=== PATIENT | male | born 2000 | race Caucasian/White ===

== ENCOUNTER 2019-08-11 18:12 | Emergency (ER) | payer SELFPAY ==
[2019-08-11] MEDS ORDERED: Ketorolac Tromethamine 30 MG/ML VIAL ONE (18:31)
[2019-08-11] MEDS ORDERED: Fentanyl 100 MCG/2 ML VIAL ONE ×2 (18:31→19:57)
--- NOTE | 2019-08-11 19:02 | RAD ---
RIGHT SHOULDER TWO VIEWS: 08/11/19 HISTORY: Fall, right shoulder pain. FINDINGS/IMPRESSION: No acute fracture or dislocation is identified. POS: [facility]
--- NOTE | 2019-08-11 19:09 | RAD ---
RIGHT ELBOW TWO VIEWS: 08/11/19 HISTORY: Fall, right elbow pain. FINDINGS/IMPRESSION: there is a comminuted fracture involving the distal shaft of the right humerus. POS: [facility]
--- NOTE | 2019-08-11 19:11 | RAD ---
PORTABLE CHEST ONE VIEW: 08/11/19 at 7:03 p.m. HISTORY: Chest pain. FINDINGS: The cardiomediastinum is normal. The lungs are well expanded and clear. The bony thorax is normal. IMPRESSION: Normal exam. POS: [facility]
[2019-08-11 19:28] LABS: #Basophils 0.1 thou/uL (0.0-0.2); #Eosinphils 0.1 thou/uL (0.0-0.7); #Lymphocytes 1.6 thou/uL (1.20-3.40); #Monocytes 1.4 thou/uL (0.11-0.59); #Neutrophils 13.1 thou/uL (1.40-6.50); %Basophils 0.3 % (0.0-1.0); %Eosinophils 0.4 % (0.0-10.0); %Monocytes 8.5 % (0.0-4.0); %Neutrophils 80.8 % (31.0-61.0); Hemoglobin 16.6 g/dL (14.0-18.0); Mean Corpuscular HGB CONC 33.3 g/dL (32.0-36.0); Mean Corpuscular Hemoglobin 30.2 pg (25.0-35.0); Mean Corpuscular Volume 90.6 fL (78.0-98.0); Platelet Count 262 thou/uL (130-400); RBC Distribution Width 12.3 % (11.5-14.5); Red Blood Cell (RBC) Count 5.49 mill/uL (4.00-5.20); White Blood Cell (WBC) Count 16.2 thou/uL (4.8-10.8)
[2019-08-11 19:46] LABS: ALT (SGPT) 23 U/L (8-55); AST (SGOT) 25 U/L (5-34); Albumin 5.2 g/dL (3.5-5.0); Alkaline Phosphatase 59 U/L (50-130); Anion Gap 15 mmol/L (10-20); BUN (Urea Nitrogen) 10 mg/dL (8.9-20.6); Bilirubin, Total 0.5 mg/dL (0.2-1.2); Calc. Creatinine Clearance 0 mL/min (70-130); Calcium 9.9 mg/dL (7.8-10.44); Carbon Dioxide 22 mmol/L (22-29); Chloride 106 mmol/L (98-107); Estimated GFR-MDRD Greater than 90; Globulin 3.1 g/dL (2.4-3.5); Glucose 106 mg/dL (70-105); Potassium 3.2 mmol/L (3.5-5.1); Protein, Total 8.3 g/dL (6.0-8.3); Sodium 140 mmol/L (136-145)
== END 2019-08-11 22:05 | disposition home or self-care (01) ==
LOC: ERS 18:12
DX: S42.201A Unspecified fracture of upper end of right humerus, initial encounter for closed fracture (principal); W22.8XXA Striking against or struck by other objects, initial encounter; Y93.67 Activity, basketball; Y99.8 Other external cause status
CPT/HCPCS: 24500; 36415; 71045; 80053; 85025; 93005; 96374; 96375; 96376; J1885; J3010

== ENCOUNTER 2019-08-18 06:15 | Day surgery (SDC) | payer OTHER ==
[2019-08-17 13:38] VITALS: BMI 27.8
[2019-08-18] MEDS ORDERED: Lidocaine 1% (PF) 30 ML VIAL ONE (06:32)
[2019-08-18] MEDS ORDERED: Ropivacaine 0.2% HCl/PF 20 ML ONE (06:32)
[2019-08-18] MEDS ORDERED: Fentanyl 100 MCG/2 ML VIAL ONE ×4 (06:32→10:31)
[2019-08-18] MEDS ORDERED: Midazolam HCl 2 mg/2 ml Vial ONE (06:32)
[2019-08-18] MEDS ORDERED: Famotidine/PF 20 mg/2ml Vial ONE (07:18)
[2019-08-18] MEDS ORDERED: traMADol HCl 50 MG TAB PO PRN ×2 (07:49)
[2019-08-18] MEDS ORDERED: HYDROcodone/Acetaminophen 10/325 mg Tablet PO PRN ×2 (07:49)
[2019-08-18] MEDS ORDERED: Ropivacaine 0.2% 550 ML 550 ML NERVE BLCK SCH (07:49)
[2019-08-18] MEDS ORDERED: Ondansetron PF 4 MG/2 ML Vial IVP PRN (07:49)
[2019-08-18] MEDS ORDERED: Zolpidem Tartrate 5 MG TAB PO PRN (07:49)
[2019-08-18] MEDS ORDERED: Promethazine HCl 25 MG/ML VIAL IM PRN (07:49)
[2019-08-18] MEDS ORDERED: Fentanyl 100 MCG/2 ML VIAL IV PRN (07:50)
[2019-08-18] MEDS ORDERED: Meperidine HCl/PF 25 MG/ML VIAL ONE (10:23)
[2019-08-18] MEDS ORDERED: PROPOFOL 200 MG/20 ML VIAL ONE (10:54)
[2019-08-18] MEDS ORDERED: PHENYLEPHRINE-NS 100 MCG/ML 10 ML SYRINGE ONE (10:54)
[2019-08-18] MEDS ORDERED: Dexamethasone 20 MG/5 ML VIAL ONE (10:54)
[2019-08-18] MEDS ORDERED: Lidocaine 1% PF 5 ML VIAL ONE (10:54)
[2019-08-18] MEDS ORDERED: Rocuronium Bromide 10 MG/ML (10ML VIAL) ONE (10:54)
[2019-08-18] MEDS ORDERED: Ondansetron PF 4 MG/2 ML Vial ONE (10:54)
[2019-08-18] MEDS ORDERED: Ropivacaine 0.5% HCl/PF (150 MG/30 ML VIAL) ONE (10:59)
[2019-08-18] MEDS ORDERED: HYDROcodone/Acetaminophen 5/325 mg Tablet ONE (11:12)
[2019-08-18] MEDS ORDERED: Ketorolac Tromethamine 30 MG/ML VIAL IVP SCH (12:00)
--- NOTE | 2019-08-18 13:07 | RAD ---
XR Humerus Rt 2 View STANDARD History: ORIF Comparison: Shoulder radiographs August 11, 2019 Findings: Satisfactory postoperative appearance distal humeral fracture fixation with a screw fixatio n along with interfragmentary screws. Impression: Satisfactory postoperative appearance.
--- NOTE | 2019-08-18 15:24 | OP ---
DATE OF PROCEDURE: 08/18/2019 PROCEDURE PERFORMED: Open reduction and internal fixation of right comminuted distal humerus fracture. PREOPERATIVE DIAGNOSIS: Right distal humerus fracture. POSTOPERATIVE DIAGNOSIS: Right distal humerus fracture. COMPLICATIONS: None. ESTIMATED BLOOD LOSS: 150 mL. PASTRY CHEF: Carisa Coto PA-C IMPLANTS: Synthes posterolateral 3.5 mm plate, 10 hole with multiple many fragment screws were utilized. INDICATIONS: Mr. Jimenez is a 19-year-old male, who fell and fractured his right humerus. He was indicated for open reduction and internal fixation to restore anatomic alignment and promote healing. Risks have been reviewed in detail. He elected to proceed with the operation. DESCRIPTION OF PROCEDURE: Mr. Jimenez was identified in the preoperative holding area. His correct extremity was marked. He was carried to the operating room. He was positioned supine. General anesthesia was induced. A multidisciplinary time-out was performed. The right upper extremity was prepped and draped in sterile fashion. We began the procedure with posterior approach to the humerus. We dissected down through the subcutaneous tissues to the fascia, which was opened. We then split the triceps muscle in its substance. We worked more distally down to the distal humerus, exposing the bone. We worked proximally and carefully up along the humeral cortex. We encountered the neurovascular bundle of the radial nerve. It was protected with a vessel loop. We dissected out the radial nerve, isolating the neurovascular bundle, so it was not injured. We worked proximal to the bundle, exposing the bone. We had a highly comminuted multi-fragment fracture at the metaphysis. We thoroughly irrigated and cleaned the bony edges. At this point, we began reduction. We placed multiple clamps and K-wires reducing the multiple fracture fragments back into their anatomic position. We placed multiple mini-fragment 2.4 mm screws across the fracture fragments. This reduced and held our fracture into its anatomic position. At this point, we then applied our 10 hole posterolateral Synthes plate. We placed multiple locking and nonlocking screws throughout the fracture proximally and distally. Applying rigid fixation. We took x-ray images confirming the plate position and alignment. There were no complications. At this point, we thoroughly irrigated with copious lavage. We then closed appropriately in layers using #2 Vicryl suture, 2-0 Vicryl suture, and blanche for the skin. A sterile dressing was applied. The patient was taken to the recovery room in good condition without complication. Job ID: [id number]
== END 2019-08-18 12:15 | disposition home or self-care (01) ==
LOC: SDC 06:15
PROVIDERS: ATTEND Orthopaedic Surgery
PROC: 0PSF04Z Reposition Right Humeral Shaft with Internal Fixation Device, Open Approach (ICD-10-PCS; principal; 2019-08-18)
DX: S42.401A Unspecified fracture of lower end of right humerus, initial encounter for closed fracture (principal); W03.XXXA Other fall on same level due to collision with another person, initial encounter; Y93.67 Activity, basketball
CPT/HCPCS: 76000; A4306; C1713; J0690; J2001; J2175; J2250; J2795; J3010; S0028